=== PATIENT | female | born 1940 | race Caucasian/White ===

== ENCOUNTER 2020-06-25 12:52 | Emergency (ER) | payer OTHER, SELFPAY ==
[2020-06-25 13:03] VITALS: BP 184/79; PULSE 76; RESP 20; TEMP 36.7; O2SAT 100
--- NOTE | 2020-06-25 13:26 | DI.CT_ITS ---
EXAM: CT HEAD CERV SPINE FACIAL WO CLINICAL HISTORY: Fall on coumadin. TECHNIQUE: Imaging Protocol: Axial computed tomography images with coronal and sagittal reformatted images were created and reviewed COMPARISON: No exams were available for comparison FINDINGS: CT Head: Ventricles and Extra axial spaces: Normal in size and morphology for the patient's age. Hemorrhage: None. Cerebral parenchyma: Normal. Midline shift: None. Brainstem/Cerebellum: Normal. Calvarium: Normal. Visualized Paranasal sinuses/Mastoids: Clear. CT Cervical Spine: Bones: No acute fracture or subluxation. Degenerative disc changes and facet degenerative changes. Soft Tissues: Unremarkable. Lung Apices: Clear. IMPRESSION: 1. No acute intracranial process. 2. No acute fracture or subluxation in the cervical spine. RADIATION DOSE DELIVERED: 1,320.34mGy.cm Total DLP DATA REPOSITORY: All CT scans at this facility are submitted to the National Radiology Data Registry (NRDR) Dose Index Registry (DIR) with the [employer] ([employer]). RADIATION OPTIMIZATION: All CT scans at this facility use at least one of these dose optimization te chniques: automated exposure control; mA and/or kV adjustment per patient size (includes targeted exa ms where dose is matched to clinical indication); or iterative reconstruction.
--- NOTE | 2020-06-25 13:28 | ED.GENADUL_ITS ---
Discharge Plan Disposition Patient Disposition: HOME Condition: Good Discharge Details Clinical Impression: Closed fracture of shoulder Primary Care Provider: Unknown,Unknown ED Provider: Kathy Erwin Home Meds and New Rx's Prescriptions: No Action warfarin 2.5 mg Tablet 2.5 mg PO ./// RF: 0 warfarin 2.5 mg Tablet 1.25 mg PO .// RF: 0 aspirin [Aspir-81] 81 mg Tablet,Delayed Release (Dr/Ec) 81 mg PO DAILY RF: 0 levetiracetam 250 mg Tablet 250 mg PO BID RF: 0 carboxymethylcellulose sodium 1 % Drops, Liquid Gel 1 drp ophthalmic (eye) HS RF: 0 metoprolol tartrate 25 mg Tablet 25 mg PO BID RF: 0 Discharge Instructions Additional Instructions: We are unable to update your tetanus shot today, I recommend you receive this tomorrow at your primary care clinic secondary to receiving your Covid vaccine today. [email or web address] [address] [place] [id number] ? ~29.7 hi Follow-up with the orthopedic doctor of your discretion, I have listed 1 that you may use Take 650 mg to 1 g of Tylenol at night to help you sleep needs 650 mg of Tylenol every 6 hours during the day to alleviate your pain I have drawn a baseline INR, I will call you if the INR is out of range Please be reevaluated should you have vomiting, worsening headache, strength or sensation changes to your extremity, or with any new or progressing symptoms Discharge Data Discharge Date/Time-TO BE ENTERED AT DEPARTURE: 06/25/20 16:20 Medical Decision Making Proximal humerus fracture, discussed with Dr. Trivedi Does not believe that there is anterior dislocation as indicated in x-ray, I confirmed with orthopedics that there is no anterior dislocation Patient was placed in sling and given referral and CD of her shoulder as she will follow up in [place] where she currently resides She will follow up for tetanus with her unable to administer tetanus secondary to Covid administration today She is aware she needs them in the outpatient setting She is discharged home ambulatory steady gait In the care of her who feels comfortable caring for patient CT cervical spine and brain do not show acute pathology INR 2.5 Hemarthrosis noted on x-ray, no evidence of significant additional bleeding Patient is hemodynamically stable at time of discharge home, discharged home in stable condition, declines opiate analgesia We will take Tylenol at home Return discussed and patient expressed understanding+ will check a Differential Diagnosis Differential Diagnosis: Fracture, dislocation, strain, contusion Medical Records Medical records reviewed: Yes I reviewed the patient's medical records. Lab Data Lab results reviewed: Yes I reviewed the patient's lab results. HPI Ms. 80-year-old female presents status post trip and fall. Patient was very excited to get her Covid vaccine today and check on her way into the clinic. She denies loss of consciousness. She is unsure if she hit her head but she did land on her right shoulder. She did still receive her vaccines and then was sent over to the emergency room for evaluation. She denies any nausea, vomiting, headache. She states her last INR was within normal limits and check a week ago. She denies any calf pain or shortness of breath. She denies any back pain or strength or sensation changes. The event occurred at approximately 11:00 today. She denies any current headache. She was recently started on Keppra for suspected seizure. Also hit her burden. She states she was able to walk on it. She denies any pain aside from superficial pain to that site. Her tetanus is not reportedly up-to-date. She has not able to receive additional vaccine at this time secondary to receiving her Covid vaccine today. General Date/Time Provider Initiated Documentation: 06/25/20 12:54 . Related Data Home Medications Medication Instructions Recorded Confirmed aspirin [Aspir-81] 81 mg PO DAILY 06/25/20 06/25/20 carboxymethylcellulose sodium 1 drp OPHTHALMIC (EYE) HS 06/25/20 06/25/20 levetiracetam 250 mg PO BID 06/25/20 06/25/20 metoprolol tartrate 25 mg PO BID 06/25/20 06/25/20 warfarin 1.25 mg PO .MO/WE/FR 06/25/20 06/25/20 warfarin 2.5 mg PO .CARTY//TH/SA 06/25/20 06/25/20 Allergies Allergy/AdvReac Type Severity Reaction Status Date / Time Sulfa (Sulfonamide Allergy Unknown Unverified 06/25/20 13:03 Antibiotics) asparagus Allergy Vomiting Unverified 06/25/20 13:03 /diarrhea General Stated Complaint: Orthopedic PEYTON: 3 Review of Systems Narrative: Review of systems negative x7 aside from where indicated in HPI, positive coagulopathy, negative neck pain, negative headache, negative vomiting, negative sensation change PFSH Social History Smoking/Tobacco Use Status: Never Smoking risk assessment performed?: Yes Alcohol Intake: never Drug use: Never Do you feel safe at home: Yes Do you feel safe in your relationship?: Yes Exam Const General: cooperative and no acute distress HENMT Head: normal to inspection Face and sinus: normal facial exam Mouth: oral mucosae normal Eyes Pupils: PERRL EOM: EOM intact bilaterally Neck Neck: normal visual inspection and full ROM Other: no midline tenderness Chest Chest: normal inspection of the chest Other: No crepitus or visible evidence of trauma Resp Effort & Inspection: normal respiratory effort Cardio Rate: regular rate Rhythm: regular rhythm Pulses: normal peripheral pulses GI Inspection: normal to inspection Other: No ecchymosis or visible evidence of trauma Back/Spine/Pelvis Back: no CVA tenderness Other: No tenderness to palpation to bilateral hips, lumbar spine, thoracic spine Skin General skin exam: no rashes or lesions noted Neuro General: patient alert and patient oriented x3 Cranial Nerves: CN's II-XI intact bilaterally and PERRL Cognition: normal cognition Speech: speech normal Gait: normal gait Other: GCS 15 Extrem Right upper extremity: normal capillary refill and shoulder/upper arm Other: Tenderness palpation to right shoulder, deformity noted, no tenderness with the right elbow Psych Appearance: well kempt Course Vital Signs Vital signs: Vital Signs Temperature 36.7 C 06/25/20 13:03 Pulse 76 06/25/20 13:03 Respiratory Rate 20 06/25/20 13:03 Blood Pressure 184/79 H 06/25/20 13:03 Pulse Oximetry 100 06/25/20 13:03 Temperature 36.7 C 06/25/20 13:03 Temperature Source Temporal Artery Scan 06/25/20 13:03 Pulse 76 06/25/20 13:03 Respiratory Rate 20 06/25/20 13:03 Respiratory Effort Non-Labored 06/25/20 13:08 Blood Pressure 184/79 H 06/25/20 13:03 Blood Pressure Position Sitting 06/25/20 13:03 Pulse Oximetry 100 06/25/20 13:03 Oxygen Delivery Method Room Air 06/25/20 13:03 Oxygen Flow Rate 0 06/25/20 13:03 Pain Level 9 06/25/20 13:03
--- NOTE | 2020-06-25 14:45 | DI.RAD_ITS ---
EXAM: XR SHOULDER RT COMPLETE 2+V CLINICAL HISTORY: shoulder injury post fall. TECHNIQUE: 2D digital imaging was performed. COMPARISON: No exams were available for comparison FINDINGS: There is a comminuted fracture of the humeral head. There is some impaction. The greater tuberosity is fractured as a separate fragment. The humeral head is abnormally positioned of beneath the gleno id. Hemarthrosis is seen. No glenoid fracture is identified. Visualized portions of the right ribs appear intact. No pneumothorax is seen. IMPRESSION: Humeral head fracture with inferior dislocation of the humeral head. DATA REPOSITORY: RADIATION DOSE DELIVERED:
[2020-06-25] MEDS: Bacitracin 1 PACKET (15:05)
[2020-06-25 15:08] VITALS: BP 150/77; PULSE 73; RESP 20; TEMP 36.7; O2SAT 100
[2020-06-25 16:26] LABS: INR 2.5 (0.9-1.1)
== END 2020-06-25 16:20 | disposition home or self-care (01) ==
PROVIDERS: Emergency Provider Physician Assistant
DX: S42.291A Other displaced fracture of upper end of right humerus, initial encounter for closed fracture (principal); W18.39XA Other fall on same level, initial encounter; S09.90XA Unspecified injury of head, initial encounter
CPT/HCPCS: 23600; 36415; 70450; 70486; 72125; 73030; 85610